=== PATIENT | female | born 2000 | race Caucasian/White ===

== ENCOUNTER 2021-05-26 17:46 | Emergency (ER) | payer BC, SELFPAY ==
[2021-05-26 17:49] VITALS: BP 126/89; PULSE 109; RESP 14; TEMP 36.3; O2SAT 97; BMI 21.7
--- NOTE | 2021-05-26 17:51 | CM.ED ---
HILDA Note HILDA received call from Yolanda at [facility]. Yolanda said that she is sending a suicidal patient in.. they are at the dorm getting their bag together. Patient's name is Rosalinda Simmons and references themself as Johnny. Patient is a transmale and secure in it. Long history of MH issues and this is Johnny's second year of counseling with patient. Yolanda said that patient has never been this bad. Patient has diagnosis of high functioning ASD, Major Depressive Disorder and OCD. Johnny started on lexapro this summer and his hyperfixation decreased and it was scary. Yolanda said that the MDD is worse than ever. Yolanda saw patient today and Johnny was tearful and voiced suicidal thoughts. He denied having a suicidal plan but then said they had researched painless ways to harm themselfves on line. Patient also told Yolanda they had started to research mental health facilities. Yolanda said patient said I need a break and has not been eating, not going to class and did not brush teeth today. Patient, per Yolanda, is sleeping too much. Patient is deescalating when experiencing severe anxiety. Patient voiced he is in a bad place and was unable to produce an email when in the past he using his OCD skills to produce an email. 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 Plan: To be determined Peggy GAN
--- NOTE | 2021-05-26 18:06 | EX.ED.DYSGE1 ---
HPI History of Present Illness Chief Complaint: Suicidal Informant: patient Onset/Context/Timing Onset: Days Context: Gradual Onset Timing: Intermittent Current Severity: Mild Maximum Severity: Mild PFSH PFSH Medical History Anxiety Depression Home Medications escitalopram oxalate [Lexapro] 20 mg PO DAILY 05/26/21 [History Last Taken Unknown] Allergy/AdvReac Type Severity Reaction Status Date / Time amoxicillin AdvReac Rash Verified 05/26/21 17:48 Penicillins [PCN] AdvReac Rash Verified 05/26/21 17:48 Social History Smoking Status: Never smoker ROS ROS ED ROS Narrative Denies recent illness. Review of Systems ROS Unobtainable: Denies due to encephalopathy Constitutional Constitutional ED: Denies anorexia Eyes Eyes: Denies blindness ENT ENT ED: Denies change in voice Cardiovascular Cardiovascular: Denies abdominal pain Respiratory/Chest Respiratory/Chest: Denies chest congestion or chest tightness Gastrointestinal Gastrointestinal: Denies abdominal pain Genitourinary Genitourinary ED: Denies decreased urination Musculoskeletal Musculoskeletal: Denies difficulty walking Integumentary Denies change in hair Neurologic Neurologic: Denies abnormal movements Psychiatric Psychiatric: Denies auditory hallucinations Endocrine Endocrinology: Denies deepening of the voice Allergic/Immunologic Allergic/Immunologic ED: Denies lip swelling or mouth swelling EXAM Physical Exam Narrative Exam Narrative: 20-year-old female that went to be identified as a male. Vital signs are stable afebrile. No acute distress. Awake alert. No signs of toxidrome. Makes eye contact. Is calm. Answers questions and follows commands. Exam benign. Medically cleared. Const Vital Signs: 05/26/21 17:49 05/26/21 21:53 Temperature 97.4 F L Temperature Source Temporal Pulse Rate 109 H 70 Respiratory Rate 14 16 Blood Pressure 126/89 H 124/78 H Blood Pressure Mean 101 93 Pulse Ox 97 97 Oxygen Delivery Method Room Air Room Air Positive well nourished, well developed, alert, oriented x3, no apparent distress, average body habitus, no limitations and healthy appearing; Negative for obese, cachectic, contractures or unkempt General Appearance ED: well developed; Negative for unkempt, cachectic or contractures Nutritional Appearance: Negative for cachectic or obese HEENT Reports normocephalic, head/scalp atraumatic and moist mucous membranes Chest Wall inspection of chest normal and palpation of chest normal Resp normal respiratory effort, normal air movement, no retractions, no use of accessory muscles and clear to auscultation bilaterally GI normal to inspection, nondistended, normoactive bowel sounds, soft to palpation, non-tender, non-distended, no masses and no bruits; Negative for hepatosplenomegaly Back/Spine no CVA tenderness, normal ROM, normal to inspection, thoracic and lumbar spine normal to inspection and no thoracic nor lumbar tenderness Extremity normal to inspection, full ROM, normal capillary refill and no joint enlargement Neuro oriented x3, CN's II-XII intact bilaterally, moves all extremities and no focal motor deficits Psych mental status grossly normal, thought process normal, cooperative, affect normal, speech normal, activity/motor behavior normal, denies hallucinations and denies homicidal ideation; Negative for denies suicidal ideation Appearance: Negative for unkempt Skin no rashes or lesions noted, no wounds, no jaundice, no petechiae and no mottling MDM MDM MDM Narrative Medical decision making narrative: 20-year-old female wants to be identified as a male. 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. Suicidal thoughts. No attempt. Does not feel safe to be discharged. Reportedly has been researching ways to commit suicide with according to the patient and the [employer]. We will do ED mental health screening labs and a Covid test. Our foster care social worker evaluate the patient. She will be transferred to a psychiatric facility. Repeat exam doing well at 7:30 PM. Repeat exam at 10:15 PM doing well. Lab Data Attestation: I reviewed the patient's lab results. Lab results narrative: Tox screen negative. Rapid Covid antigen test negative. CBC normal white count of 5. Hemoglobin 12.6. Electrolytes unremarkable gap of 7 normal BUN and creatinine. Glucose 92. Both the and alcohol tests are negative. Labs: Laboratory Results - last 24 hr 05/26/21 05/26/21 05/26/21 18:22 18:50 18:50 WBC 5.6 RBC 4.58 Hgb 12.6 Hct 37.8 MCV 82.5 MCH 27.5 MCHC 33.3 RDW Std Deviation 41.3 RDW Coeff of Luis Carlos 13.9 Plt Count 211 MPV 10.8 Immature Gran % (Auto) 0.200 Neut % (Auto) 61.4 Lymph % (Auto) 17.4 L Callahan % (Auto) 16.2 H Eos % (Auto) 3.9 Baso % (Auto) 0.9 Absolute Neuts (auto) 3.4 Absolute Lymphs (auto) 0.97 Nucleated RBC % 0 Sodium 140 Potassium 3.8 Chloride 107 Carbon Dioxide 26.0 Anion Gap 7 BUN 9 Creatinine 0.87 Estim Creat Clear Calc 104.92 Est GFR (MDRD) Af Amer 106 Est GFR (MDRD) Non-Af 88 BUN/Creatinine Ratio 10.3 Glucose 92 Calcium 8.7 Serum , Qual Urine Opiates Screen NEGATIVE Urine Methadone Screen NEGATIVE Ur Barbiturates Screen NEGATIVE Ur Phencyclidine Scrn NEGATIVE Ur Amphetamines Screen NEGATIVE U Methamphetamin-MDMA NEGATIVE U Benzodiazepines Scrn NEGATIVE Urine Cocaine Screen NEGATIVE U Cannabinoids Screen NEGATIVE Ur Drug Screen Comment Ethyl Alcohol 05/26/21 05/26/21 18:50 18:50 WBC RBC Hgb Hct MCV MCH MCHC RDW Std Deviation RDW Coeff of Luis Carlos Plt Count MPV Immature Gran % (Auto) Neut % (Auto) Lymph % (Auto) Callahan % (Auto) Eos % (Auto) Baso % (Auto) Absolute Neuts (auto) Absolute Lymphs (auto) Nucleated RBC % Sodium Potassium Chloride Carbon Dioxide Anion Gap BUN Creatinine Estim Creat Clear Calc Est GFR (MDRD) Af Amer Est GFR (MDRD) Non-Af BUN/Creatinine Ratio Glucose Calcium Serum , Qual NEGATIVE Urine Opiates Screen Urine Methadone Screen Ur Barbiturates Screen Ur Phencyclidine Scrn Ur Amphetamines Screen U Methamphetamin-MDMA U Benzodiazepines Scrn Urine Cocaine Screen U Cannabinoids Screen Ur Drug Screen Comment Ethyl Alcohol 5.0 Discharge Plan Triage Chief Complaint: Suicidal ED Provider: Dario Escobar Dx/Rx/DC Orders Clinical Impression: Depression with suicidal ideation Prescriptions: No Action escitalopram oxalate [Lexapro] 20 mg Tablet 20 mg PO DAILY RF: 0 Primary Care Provider: Care Physician,No Primary Disposition Disposition: Psychiatric Hospital or Unit
--- NOTE | 2021-05-26 18:31 | ED.RN ---
Pt. states they are feeling overwhelmed. Is in college. Pt. states they don't have a plan, but researches online about how to end their life. Pt. states they are impulsive and worry more about that than having a plan to end life.
[2021-05-26 18:48] LABS: Amphetamine Urine VISTA NEGATIVE (<1000 ng/mL); Barbiturate Urine VISTA NEGATIVE (< 200 ng/mL); Benzodiazepine Urine VISTA NEGATIVE (< 200 ng/mL); Cocaine Urine VISTA NEGATIVE (< 300 ng/mL); Ecstacy Urine VISTA NEGATIVE (< 500 ng/mL); Methadone Urine VISTA NEGATIVE (< 300 ng/mL); PCP Urine VISTA NEGATIVE (< 25 ng/mL); THC Urine VISTA NEGATIVE (< 50 ng/mL); Vista UDS pH Range 4
[2021-05-26 19:00] LABS: Absolute Lymphocyte Count 0.97 X10^3/uL (0.83-4.51); Absolute Neutrophil Count 3.4 X10^3/uL (2.0-7.7); Basophil# 0.05 X10^3/uL; Basophil% 0.9 % (0-1); Eosinophil# 0.22 X10^3/uL; Eosinophils% 3.9 % (0-5); Hematocrit 37.8 % (37-47); Hemoglobin 12.6 g/dL (12.0-15.0); Lymphocyte # 0.97 X10^3/ul (0.83-4.51); Lymphocyte % 17.4 % (19-41); Mean Corp Hgb Conc 33.3 g/dL (32-36); Mean Corpuscular Hgb 27.5 pg (27.0-32.0); Mean Corpuscular Volume 82.5 fL (81-99); Mean Platelet Vol. 10.8 fl (6.2-12.0); Monocyte% 16.2 % (0-10); NRBC Flagged by Analyzer 0 % (0-5); Neutrophil # 3.42 X10^3/uL (2.7-7.7); Neutrophil % 61.4 % (47-70); Platelet Count 211 K/mm3 (150-450); RBC Distribution Width CV 13.9 % (11.6-14.6); RBC Distribution Width SD 41.3 fl (35.1-43.9); Red Blood Count 4.58 M/mm3 (4.2-5.4); White Blood Count 5.6 K/mm3 (4.4-11.0)
[2021-05-26 19:06] LABS: Internal QC Validated? YES +Cl - CLEAR BKGD; Pregnancy, Serum, hCG Quali. NEGATIVE Negative
[2021-05-26 19:11] LABS: Anion Gap 7 (5-15); BUN 9 mg/dL (7-18); BUN/Creat Ratio 10.3 RATIO (10-20); Calcium,Total 8.7 mg/dL (8.5-10.1); Chloride 107 mmol/L (98-107); Creatinine, Serum 0.87 mg/dL (0.55-1.02); EST Glomerular Filtration Rate 88 mL/min (>60); Est Glom Filt Rate - Afr Amer 106 mL/min (>60); Estimated Creatinine Clearance 104.92 ml/min; Glucose 92 mg/dL (74-106); Potassium 3.8 mmol/L (3.5-5.1); Sodium Level 140 mmol/L (136-145)
--- NOTE | 2021-05-26 19:32 | CM.ED ---
SOCIAL WORK ASSESSMENT Referral Source: Reason for Consult: Mental Health Chief Compliant: Patient presents to the ED from [facility]. Patient reports that he (preferred pronoun) suffers from ?depression for awhile and was diagnosed with depression during the summer?. Patient said that he was prescribed medication, and it was ?better?. Patient said that he has ?very bad depressive episode?. Patient said that he went home over fall break recently and the disruption of the normal was difficulty for him and ?messed me up?. Patient noted he has also been diagnosed with ASD. Patient said, ?the breakthrough everything off balance? and reports feeling ?extra depressed?. Patient said that he was researching methods to kill himself but with ?little pain?. Patient said that he had no developed plan as ?I have no motivation to get the materials and did not have the courage to do it?. Patient reports that he has not been taking care of self. Patient said that he has not eaten good meals and yesterdays meal was ?cheese puffs and pop tarts? and milkshake at night. Patient said that he has been ?sleeping a lot lately? and when asked to quantify that he said, ?at least 2/3 of the day??. Patient said that the last time he ate healthy was before break. SW asked if patient has lost or gained weight and he said, ?I don?t pay attention?. Marital/Social History: Patient is from [place]. He is single. Prefers males? pronouns Living Situation: Patient resides in a dorm at the [facility]. He said that him and his roommate are not close but do not ?not get along?. Support/Resources: Patient reports that he has friends at the [facility], and he plans to let 1-2 friends know about the discharge plan. Patient said that he also goes to [employer] at the [facility] which has milkshakes and is involved in clubs at the [facility]. Patient said that he has 2 cousins that reside in [place], and he spent the summer with them and texts them. He said that his cousins are supportive as they also have depression. History: None Education and Employment History: Patient graduated from high school. No IEP or 504 in high school. Recently diagnosed with ASD (before the fall). Patient is a sophomore at the [employer] and his major is currently Undecided, but he is leaning toward communication and minor in theatre. Patient said that his grades are ?pretty good?, and he did well last year. Patient said that he is not employed. Mental Health Treatment/History: Patient reports a diagnosis of ASD Level 1, Generalized Anxiety Disorder, and ?Depression?. Patient is prescribed 20 mg of Lexapro and he takes it as prescribed. Patient reports he ?rarely forgets? his medication as he has a timer and alo to remind him of medication. Triggers/Stressors: Patient reports that the ?break? was a trigger as there was a change in scheduled. Patient said that Loud noises are also a trigger. Patient said that he also has difficulty paying attention. Patient said that he is startled easily. Coping Skills: Patient reports that he distracts himself by playing video games and watching task master (yaron). Patient said that he enjoys writing and music but recently has ?writing block and I can?t come up with a story?. Abuse and Neglect History: Denied Substance Abuse History: Patient said that he tried alcohol 1x this summer and got drunk and ?I hated it? and has not drunk alcohol since. Patient denied any other drug use. Risk to Self/Others: Suicidal: Patient reports that he has suicidal thoughts that are present. Patient said that he began noticing the thoughts the 2nd semester of his freshman year. However, patient said that his mother reports noticing his first semester of freshman year because he would say he wanted to ?disappear?. Patient said that his plans include how much of a dose of his medication to take to have a ?painless ?way to which he researched online. Patient reports that last night he laid down on the ground, in the rain and curled up and ?wanted to ?. Homicidal: Denied Violence: Patient said that he picks skin on his back, head and nose but reports he does not do it to feel pain but as a ?stim? method. Mental Status Exam: Orientation:x4 Memory: Intact Appearance/General Behavior: Wearing hospital gown, clean and good eye contact. Engaging Mood and Affect: Depressed mood and affect Thought Process: Logical and linear General Intellectual Functioning: Above Average Judgement: Good Insight: Good Assessment: Patient presents to the ED at the request of his [facility] Counselor. Patient?s counselor said that patient was very tearful today and patient had said that he is in a ?bad place?. Patient said that he ?normally hyper fixates on the media? but was having difficulty as ?I can?t go to my own head?. Patient admits to researching methods to harm himself that are painless. Patient?s counselor reports patient is not eating well, not going to class and hasn?t brushed his teeth. Patient?s counselor said that patient is also ?sleeping too much?. Patient also voiced that he wanted to lay down in the rain last night and curl up and . Thus, to ensure patient?s safety and stabilization he would benefit from inpatient psych facility. Plan: Inpatient psych unit Peggy GAN
[2021-05-26] MEDS: Ibuprofen 600 MG Tablet PO (19:36)
--- NOTE | 2021-05-26 20:15 | CM.ED ---
Addendum entered by Peggy Mosquera 05/26/21 22:30: HILDA was contacted by Rukhsana. Rukhsana stated patient would be accepted. Rukhsana ask that they contact their transport company to see if patient can be transported in a timely fashion. HILDA received call back from [facility]. No ambulance transport and patient will need to have [facility] arrange transport. Lenore arranged transport in 90-120 minutes. Patient's counselor, Yolanda, was updated regarding patient's discharge plan. Patient going to [facility]. Accepting MD [facility]. Patient will go to [facility] in Intake at [facility]. HILDA spoke to patient and updated him regarding the discharge plan. Patient voiced he has no concerns or discharge issues. Plan: [facility] Peggy GAN Addendum entered by Peggy Mosquera 05/26/21 20:46: HILDA sent referral to [facility]. HILDA received voice mail from [employer]. They declined patient. [facility] called the orthopaedic doctor and reported that they needed EKG. HILDA faxed EKG to patient. Original Note: Patient signed GIORGIO for [facility]. HILDA called [facility]. They are accepting referrals. HILDA faxed referral to [facility]. HILDA called and spoke to Ramer in admissions and she was reviewing the referral. Plan: To be determined Peggy GAN
--- NOTE | 2021-05-26 20:30 | EKG12_ITS ---
Test Reason : MHC Blood Pressure : / mmHG Vent. Rate : 064 BPM Atrial Rate : 064 BPM P-R Int : 134 ms QRS Dur : 078 ms QT Int : 390 ms P-R-T Axes : 055 072 061 degrees QTc Int : 402 ms Normal sinus rhythm Normal ECG Confirmed by JIE BARRIOS, MIGUEL ([id number]), editorial intern MARIAM CARLSON ([id number]) on 05/28/2021 9:22:58 AM Referred By: MICHAEL Confirmed By:MIGUEL CERON MD
--- NOTE | 2021-05-26 20:56 | NURSING ---
Pts mother Ivonne called for an update. pt confirmed it was ok to talk to mother. Mother has been told we are waiting on case management to find a facility to accept him. pts mother will like an update whenever more information arises. Mothers number has been taken. Ivonne [phone]. Mother states she has no further questions at this time.
[2021-05-26 21:53] VITALS: BP 124/78; PULSE 70; RESP 16; O2SAT 97
[2021-05-26 23:18] VITALS: BP 124/76; PULSE 74; RESP 14; O2SAT 100
== END 2021-05-27 ==
PROVIDERS: Emergency Provider Emergency Medicine
DX: F32.A Depression, unspecified (principal); R45.851 Suicidal ideations; F41.9 Anxiety disorder, unspecified; Z79.899 Other long term (current) drug therapy
CPT/HCPCS: 36415; 80048; 80307; 82077; 84703; 85025; 87426; 93005; 99285